=== PATIENT | male | born 1965 | race Caucasian/White ===

== ENCOUNTER 2016-10-29 17:22 | Emergency (ER) | payer BC ==
[~2016-10-29] VITALS: Ht 190.5 cm; Wt 99.8 kg
[~2016-10-29 17:22] MED LIST: AML5T PO; TAKES NO MEDS
[2016-10-29] MEDS ORDERED: SODIUM CHLORIDE 0.9% 1,000 ML IVB ONE (17:37)
[2016-10-29] MEDS ORDERED: NALBUPHINE HCL 10 MG/1ml INJECTION IV ONE (17:45)
[2016-10-29] MEDS ORDERED: PROMETHAZINE HCL 25 MG/ML 1ML IV PRN (17:45)
[2016-10-29] MEDS ORDERED: cefTRIAXone 1GM/50ML D5W 50 ML IV ONE (17:45)
[2016-10-29 17:52] LABS: Basophils # (auto) 0 uL; Basophils % (auto) 0.6 % (0.0-2.0); CONDITION Y; Eosinophils # (auto) 0 uL; Eosinophils % (auto) 0.6 % (0.0-7.0); Hemoglobin 15.7 g/dL (13.5-17.5); Lymphocytes % (auto) 20.4 % (10.0-50.0); Mean Corpuscular Hemoglobin 30.1 pg (28.0-32.0); Mean Corpuscular Hgb Conc. 33.4 g/dL (32.0-36.0); Mean Corpuscular Volume 90.2 fL (80.0-100.0); Mean Platelet Volume 7.6 fL (7.4-10.4); Monocytes # (auto) 0.5 uL; Monocytes % (auto) 10.7 % (0.0-12.0); Neutrophils # (auto) 3.3 uL; Neutrophils % (auto) 67.7 % (37.0-80.0); Platelet Count (auto) 237 10^3/uL (140-450); White Blood Cell 4.8 10^3/uL (4.4-10.8)
[2016-10-29 18:16] LABS: Albumin 3.7 g/dL (3.4-5.0); BUN/Creatinine Ratio 10.3; Bilirubin, Total 1.1 mg/dL (0.2-1.0); Calcium 8.6 mg/dL (8.5-10.1); Potassium 3.1 mmol/L (3.5-5.1); Total Protein 6.8 g/dL (6.4-8.2)
[2016-10-29] MEDS ORDERED: SODIUM CHLORIDE 0.9% 1,000 ML IV ONE (19:15)
[2016-10-29 21:40] VITALS: BP 142/90
== END 2016-10-29 21:50 | disposition home or self-care (01) ==
LOC: ER 17:24
DX: K55.059 Acute (reversible) ischemia of intestine, part and extent unspecified (principal); I10 Essential (primary) hypertension; G47.30 Sleep apnea, unspecified
CPT/HCPCS: 36415; 71020; 74176; 80053; 82150; 83690; 83735; 84443; 84484; 85025; 87040; 93005; 94761; 96361; 96365; 96375; 99285; J0696; J2300; J2550; J7030

== ENCOUNTER → 2016-11-08 | Outpatient (CLI) | payer BC ==
[2016-11-08 17:29] LABS: BUN/Creatinine Ratio 11.9; Calcium 8.4 mg/dL (8.5-10.1); Potassium 3.4 mmol/L (3.5-5.1)
== END | disposition home or self-care (01) ==
LOC: LAB 16:41
PROVIDERS: ATTEND Family Medicine
DX: R10.9 Unspecified abdominal pain (principal)
CPT/HCPCS: 36415; 80048